=== PATIENT | female | born 1940 | race Caucasian/White ===

== ENCOUNTER 2018-09-10 04:05 | Inpatient (IN) ==
--- NOTE | 2018-09-04 09:07 | EKG Report ---
Test Performed on : 09/04/2018 09:00:10 AM Test Reason : PAT Blood Pressure : / mmHG Vent. Rate : 066 BPM Atrial Rate : 066 BPM P-R Int : 160 ms QRS Dur : 074 ms QT Int : 422 ms P-R-T Axes : 084 016 039 degrees QTc Int : 442 ms Normal sinus rhythm. Cannot rule out Anterior infarct , age undetermined Abnormal ECG No previous ECGs available Unconfirmed Result
[2018-09-04 09:26] LABS: URINE SOURCE CLEAN CATCH
[2018-09-04 09:34] LABS: BILIRUBIN URINE NEGATIVE (NEGATIVE); BLOOD URINE NEGATIVE (NEGATIVE); COLOR YELLOW; GLUCOSE URINE NEGATIVE (NEGATIVE); KETONE URINE NEGATIVE (NEGATIVE); LEUKOCYTES URINE MODERATE (NEGATIVE); NITRITE URINE POSITIVE (NEGATIVE); PH URINE 5.5; PROTEIN URINE NEGATIVE (NEGATIVE); SP GRAVITY URINE 1.002; TURBIDITY URINE CLEAR (CLEAR); UROBILINOGEN URINE NORMAL (NORMAL)
[2018-09-04 09:35] LABS: BASO# 0.03 X1000 (0.0-0.2); BASO% 0.6 % (0.0-0.8); EOS% 3.9 % (0.0-10.0); HEMATOCRIT 38.1 % (37.0-47.0); HEMOGLOBIN 11.7 g/dL (12.0-16.0); LYMPH# 1.09 X1000 (1.2-3.4); LYMPH% 21.2 % (20.5-51.1); MCH 30.2 PG (27-31); MCHC 30.7 g/dL (33-37); MCV 98.4 FL (81-99); MONO# 0.64 X1000 (0.11-0.59); MONO% 12.5 % (1.7-9.3); MPV 9.7 FL (7.4-10.4); NEUT# 3.17 X1000 (1.4-6.5); NEUT% 61.8 % (42.2-75.2); PLT 247 X1000 (130-400); RBC 3.87 XMIL (4.2-5.4); RDW 13.8 % (11.5-14.5); UR EPITHELIAL CELLS <10 /HPF (<10); URINE BACTERIA 4+ /HPF; URINE RBC <10 /HPF (<10); WBC 5.13 X1000 (4.8-10.8)
[2018-09-04 09:44] LABS: INR 0.87; PROTIME 12.5 Seconds (11.0-16.0)
[2018-09-04 09:45] LABS: PTT 30.4 Seconds (22.3-41.8)
[2018-09-04 10:19] LABS: AGAP 8; BUN 14 mg/dL (8-22); CALCIUM 9.1 mg/dL (8.8-10.2); CHLORIDE 107 mmol/L (98-107); COSMO 286; CREATININE 0.7 mg/dL (0.5-0.9); ESTIMATED GFR > 60; GLUCOSE 81 mg/dL (70-104); SODIUM 144 mmol/L (136-145); TCO2 29 mmol/L (25-35)
[2018-09-10] MEDS ORDERED: PEPCID ONE (06:35)
[2018-09-10] MEDS ORDERED: COLACE ONE (06:35)
[2018-09-10] MEDS ORDERED: REGLAN ONE (06:35)
[2018-09-10] MEDS ORDERED: KEFZOL 1 GM/D5W 1 GM/50 ML IVPB ONE (06:36)
[2018-09-10] MEDS ORDERED: LYRICA ONE (06:36)
[2018-09-10] MEDS ORDERED: LR 1,000 ML ONE (06:36)
[2018-09-10] MEDS ORDERED: CELEBREX ONE (06:36)
[2018-09-10] MEDS ORDERED: DIPRIVAN 1% 500 MG/50 ML BOTTLE ONE (07:08)
[2018-09-10] MEDS ORDERED: DURAMORPH ONE (07:11)
[2018-09-10] MEDS ORDERED: SODIUM CHLORIDE 0.9% ONE (07:12)
[2018-09-10] MEDS ORDERED: CYKLOKAPRON 1,000 MG/NS 1,000 MG/100 ML IVPB ONE (07:12)
[2018-09-10] MEDS ORDERED: TORADOL ONE (07:12)
[2018-09-10] MEDS ORDERED: MARCAINE 0.25% PF ONE (07:12)
[2018-09-10] MEDS ORDERED: EXPAREL 1.3% ONE (07:12)
[2018-09-10] MEDS ORDERED: NEOSPORIN G.U. IRRIGANT ONE (07:13)
[2018-09-10] MEDS ORDERED: FENTANYL ONE (07:47)
[2018-09-10] MEDS ORDERED: ROBINUL ONE (08:28)
[2018-09-10] MEDS ORDERED: NEO-SYNEPHRINE ONE (08:28)
[2018-09-10] MEDS ORDERED: ZOFRAN ONE (08:30)
[2018-09-10] MEDS ORDERED: DECADRON ONE (08:30)
[2018-09-10] MEDS ORDERED: OFIRMEV 1000 MG/ISOTONIC SOLN 1,000 MG/100 ML BOTTLE ONE (08:30)
[2018-09-10 08:33] LABS: URINE SOURCE CATH
[2018-09-10 08:37] LABS: BILIRUBIN URINE NEGATIVE (NEGATIVE); BLOOD URINE NEGATIVE (NEGATIVE); COLOR YELLOW; GLUCOSE URINE NEGATIVE (NEGATIVE); KETONE URINE NEGATIVE (NEGATIVE); LEUKOCYTES URINE NEGATIVE (NEGATIVE); NITRITE URINE NEGATIVE (NEGATIVE); PROTEIN URINE NEGATIVE (NEGATIVE); SP GRAVITY URINE 1.014; TURBIDITY URINE CLEAR (CLEAR); UR EPITHELIAL CELLS <10 /HPF (<10); URINE BACTERIA NEGATIVE /HPF; URINE RBC <10 /HPF (<10); URINE WBC <10 /HPF (<10); UROBILINOGEN URINE NORMAL (NORMAL)
[2018-09-10] MEDS ORDERED: EPHEDRINE ONE (08:43)
[2018-09-10] MEDS ORDERED: LR 500 ML ONE (09:32)
--- NOTE | 2018-09-10 10:03 | OPERATIVE NOTE ---
PROCEDURE DATE: 09/10/2018 PREOPERATIVE DIAGNOSIS: Degenerative joint disease right hip. POSTOPERATIVE DIAGNOSIS: Degenerative joint disease right hip. PROCEDURE PERFORMED: Right anterior hip replacement. SURGEON: Esequiel Bright MD. MEDICAL EDUCATION SPECIALIST: DIGNA Mitchell. Mr. Camacho was necessary for proper manipulation and exposure of the hip during the surgery. ANESTHESIA: Spinal. COMPLICATIONS: None. PROCEDURE IN DETAIL: A 78-year-old female presents for surgical right anterior hip replacement. Risks, benefits, and no guarantees were discussed, and she is willing to proceed. She was taken to the operating room, and satisfactory anesthesia obtained. The patient was transferred the Clements table and the right hip prepped and draped in usual sterile fashion. A time-out was taken to confirm operative site, procedure, and patient. The anterior approach to the right hip was undertaken with an incision starting 1 cm distal and lateral to the anterior superior iliac spine. This was extended roughly 10 cm over the tensor fascia patrice. Dissection was carried down through the subcutaneous tissue to the tensor fascia which was split in line with the incision. Blunt dissection along the inner membrane of the tensor was undertaken down to the anterior hip capsule. Cobra retractors were placed over the superior and inferior aspect of the femoral neck, and a capsulotomy incision made to expose the hip. The C-arm was used at this point to reference leg lengths without any traction on either leg to establish an AP pelvis. An osteotomy was subsequently made at the femoral neck and the femoral head removed. A very small Cobra retractor was placed directly on acetabular bone anteriorly to protect the neurovascular bundle from damage during reaming. Sequential reaming up to a 47 reamer was undertaken with good corticocancellous bone. A DePuy [place] MARQUEZ coated 48 outer diameter cup was then impacted under fluoroscopic guidance in roughly 15 degrees of anteversion and 45 degrees of abduction. This had secure press- fit fixation. A 25 length screw was placed in the 12:00 position of the cup for additional security. A 32 mm inner diameter polyethylene liner with 0 degree lip was impacted in the cup. The liner cup interface and cup bone interface was checked and noted to be stable. Traction was released off the leg, and the leg and hip extended and externally rotated to facilitate broaching of the proximal femur. Sequential broaching with a Xubais broach was undertaken up to a size 2 broach, which had good axial and rotational stability. The calcar was reamed with the calcar reamer for a flush finish. A standard neck geometry with a 1.5 32 trial head reproduced range of motion as well as stability and leg length. The trial femoral stem was removed and an Actis size 2 collared stem impacted in the proximal femur with secure axial and rotational stability. A 32 mm ceramic head with a 1.5 neck taper was impacted onto this and the hip reduced. The C-arm was used to verify accurate hardware placement as well as buddhist of leg lengths without over lengthening. Stability was assessed by dropping the foot to the floor with the hip extended, and roughly 75 degrees of external rotation without any anterior instability. The joint was copiously irrigated with irrigant. A Hemovac drain was placed. The joint and subcutaneous tissue was injected with Exparel for pain management. The fascia of the tensor was closed with a running V- Loc, the subcutaneous with 2-0 Vicryl, and the skin with skin fortino. Sterile dressings completed the closure, and the patient was recovered from anesthesia and transferred to recovery room in stable condition. No intraoperative complications were noted. Instrument count and sponge count was correct at the time of closure. cc: Bud Bright MD
[2018-09-10] MEDS: NS 1,000 ML ONE ×2 (10:30→10:56)
[2018-09-10] MEDS ORDERED: MORPHINE IV PRN ×3 (12:00)
[2018-09-10] MEDS ORDERED: ZOFRAN ODT PO PRN (12:00)
[2018-09-10] MEDS ORDERED: OXY IR PO PRN ×2 (12:00)
[2018-09-10] MEDS ORDERED: ZOFRAN IV PRN (12:00)
[2018-09-10] MEDS ORDERED: CYKLOKAPRON 1,000 MG in NS 100 ML IV ONE (14:00)
[2018-09-10] MEDS ORDERED: NS 500 ML IV ONE (14:13)
[2018-09-10] MEDS: NS 1,000 ML IV SCH ×2 (14:53→20:23)
--- NOTE | 2018-09-10 14:53 | PROGRESS NOTE ---
DATE: 09/10/2018 SUBJECTIVE DATA: Ms. Oh is on postop day 0 of a right anterior hip replacement. She reports that she is doing well at this time. She has no complaints. OBJECTIVE DATA: The patient's blood pressure was slightly low, in the lower 90s. The patient sat on the side of the bed without difficulty. There was good sensation to the right lower extremity. There were good pedal pulses. There was good capillary refill. The patient was able to flex her quadriceps muscles without difficulty. There was a negative Homans sign. ASSESSMENT: Degenerative joint disease of the right hip with right anterior hip replacement. PLAN: We will plan on monitoring Ms. Oh overnight. She had one episode of low blood pressure and we will give her a fluid bolus of 500 mL of normal saline to correct this. We will check back on her in the morning and hopefully get her discharged home. Dictated by DIGNA Mitchell for Bud Bright MD cc: DIGNA Mitchell MD
[2018-09-10] MEDS: TYLENOL PO SCH ×2 (14:59→20:21)
[2018-09-10] MEDS: ULTRAM PO SCH ×2 (14:59→20:21)
[2018-09-10] MEDS: KEFZOL 1 GM/D5W 1 GM/50 ML IVPB IV SCH (15:58)
[2018-09-10] MEDS ORDERED: CYANOCOBALAMIN SUBQ SCH (16:00)
[2018-09-10] MEDS: COLACE PO SCH (20:21)
[2018-09-10] MEDS: PERIDEX MT SCH (20:22)
[2018-09-10] MEDS: CELEBREX PO SCH (20:22)
[2018-09-10] MEDS ORDERED: [UNRECOGNIZED DRUG - OTHER] PO SCH (21:00)
[2018-09-10] MEDS ORDERED: SANCTURA PO SCH (21:00)
[2018-09-11] MEDS: KEFZOL 1 GM/D5W 1 GM/50 ML IVPB IV SCH (00:01)
[2018-09-11] MEDS: TYLENOL PO SCH ×2 (03:28→08:51)
[2018-09-11] MEDS: ULTRAM PO SCH ×2 (03:28→08:50)
[2018-09-11] MEDS: SYNTHROID PO SCH ×2 (03:28→08:45)
[2018-09-11 05:46] LABS: HEMATOCRIT 27.3 % (37.0-47.0); HEMOGLOBIN 8.3 g/dL (12.0-16.0)
[2018-09-11] MEDS: NS 1,000 ML IV SCH (06:03)
[2018-09-11 06:21] LABS: AGAP 5; BUN 7 mg/dL (8-22); CALCIUM 8.6 mg/dL (8.8-10.2); CHLORIDE 110 mmol/L (98-107); COSMO 277; CREATININE 0.7 mg/dL (0.5-0.9); ESTIMATED GFR > 60; GLUCOSE 98 mg/dL (70-104); POTASSIUM 4.4 mmol/L (3.5-5.1); SODIUM 140 mmol/L (136-145); TCO2 25 mmol/L (25-35)
[2018-09-11 07:16] VITALS: BP 115/66
--- NOTE | 2018-09-11 07:57 | PROGRESS NOTE ---
DATE: 09/11/2018 SUBJECTIVE: Ms. Oh is seen status post anterior hip replacement. At the present time, she is afebrile with stable vital signs. Her incision is clean and dry. There are no signs of DVT or infection. She can be mobilized today. She can be discharged home after therapy for home therapy. I will follow up with her in roughly 12 days. She is to continue her regular medicines, as well as aspirin for DVT prophylaxis and pain medicine. I will see her back in the interim for any worsening signs or symptoms. cc: Bud Bright MD
[2018-09-11] MEDS: COLACE PO SCH (08:51)
[2018-09-11] MEDS: CELEBREX PO SCH (08:51)
[2018-09-11] MEDS: PERIDEX MT SCH (08:51)
[2018-09-11] MEDS ORDERED: ICAR-C PLUS PO SCH (09:00)
[2018-09-11] MEDS ORDERED: PEPCID PO SCH (09:00)
[2018-09-11] MEDS ORDERED: ASPIRIN PO SCH (09:00)
[2018-09-11] MEDS ORDERED: SANCTURA PO SCH (09:00)
[2018-10-09] MEDS ORDERED: VITAMIN D PO SCH (16:00)
== END 2018-09-11 11:47 | disposition home health service (06) | DRG 470 ==
LOC: SURHOLD 04:05 → 4N 08:14
PROVIDERS: ADMIT Orthopaedic Surgery Adult Reconstructive Orthopaedic Surgery; ATTEND Orthopaedic Surgery Adult Reconstructive Orthopaedic Surgery
CPT/HCPCS: 76000; 80048; 81001; 85014; 85018; 85025; 85610; 85730; 86850; 86900; 86901; 88304; 88311; 93005; 93010; 94761; 94799; 97110; 97116; 97162; A9270; C9290; J0131; J0690; J1100; J1885; J2274; J2275; J2370; J2405; J3010; J7030; J7120; Q9974; S0020